=== PATIENT | female | born 1975 | race Caucasian/White ===

== ENCOUNTER → 2017-10-06 | Outpatient (CLI) | payer OTHER ==
[~2017-10-06] MED LIST: IBUP-1223 PO; None per pt; OXYC-302 PO
== END ==
LOC: STAR 09:03
PROVIDERS: ATTEND Otolaryngology
DX: Z02.9 Encounter for administrative examinations, unspecified (principal)

== ENCOUNTER 2017-10-10 05:33 | Observation (INO) | payer OTHER ==
[~2017-10-10] VITALS: Ht 160 cm; Wt 89.0 kg
[2017-10-10] MEDS ORDERED: LACTATED RINGERS 1,000 ML IV SCH (06:35)
[2017-10-10 06:42] VITALS: BP 108/72
[2017-10-10] MEDS ORDERED: LIDOCAINE-MPF 1%, 2ML INFIL ONE (07:00)
[2017-10-10] MEDS ORDERED: OXYMETAZOLINE NASAL SPRAY 0.05%, 15ML ONE (07:01)
[2017-10-10] MEDS ORDERED: FENTANYL PF 250 MCG/5ML ONE (07:18)
[2017-10-10] MEDS ORDERED: MIDAZOLAM 1 MG/ML, 2ML ONE (07:18)
[2017-10-10] MEDS ORDERED: ACETAMINOPHEN 325 MG TABLET PO PRN ×2 (07:30→10:00)
[2017-10-10] MEDS ORDERED: HYDROcodone/APAP 7.5-325MG/15ML UDC PO PRN (07:30)
[2017-10-10] MEDS ORDERED: MORPHINE SULFATE 4 MG/ML, 1ML IVPush PRN (07:30)
[2017-10-10] MEDS ORDERED: OXYcodone 5 MG/5 ML ORAL.SOL UDC PO PRN (07:30)
[2017-10-10] MEDS ORDERED: MEPERIDINE/PF 25MG/0.5ML IVPush PRN (07:30)
[2017-10-10] MEDS ORDERED: PROMETHAZINE 25 MG/ML, 1ML IV PRN (07:30)
[2017-10-10] MEDS ORDERED: FENTANYL PF 100 MCG/2ML IV PRN (07:30)
[2017-10-10] MEDS ORDERED: ONDANSETRON ODT 8 MG PO PRN (07:30)
[2017-10-10] MEDS ORDERED: OXYcodone 5 MG/5 ML ORAL.SOL UDC ONE (08:45)
[2017-10-10] MEDS ORDERED: FENTANYL PF 100 MCG/2ML ONE (08:45)
[2017-10-10] MEDS ORDERED: ACETAMINOPHEN 650 MG/20.3 ML UDC ONE (08:45)
[2017-10-10] MEDS ORDERED: MEPERIDINE/PF 25MG/0.5ML ONE (09:03)
[2017-10-10] MEDS ORDERED: ONDANSETRON ODT 4 MG PO PRN (10:00)
[2017-10-10] MEDS ORDERED: IBUPROFEN 200 MG TABLET PO PRN (10:00)
[2017-10-10] MEDS ORDERED: DEXAMETHASONE 4 MG/ML, 5ML ONE (11:10)
[2017-10-10] MEDS ORDERED: PROPOFOL 10 MG/ML, 20ML ONE (11:10)
[2017-10-10] MEDS ORDERED: ROCURONIUM 10 MG/ML,10ML ONE (11:10)
[2017-10-10] MEDS ORDERED: SUCCINYLCHOLINE 20 MG/ML, 10ML ONE (11:10)
[2017-10-10] MEDS: LACTATED RINGERS 1,000 ML IV SCH ×2 (13:16→20:00)
[2017-10-10] MEDS: APAP/CODEINE 300/30MG TABLET PO PRN (14:03)
[2017-10-10 14:30] VITALS: BP 114/71
[2017-10-10 19:03] VITALS: BP 119/71
[2017-10-11 01:12] VITALS: BP 100/60
[2017-10-11] MEDS: APAP/CODEINE 300/30MG TABLET PO PRN (05:52)
[2017-10-11] MEDS: LACTATED RINGERS 1,000 ML IV SCH (06:00)
[2017-10-11 07:30] VITALS: BP 113/63
== END 2017-10-11 09:32 | disposition home or self-care (01) ==
LOC: OUT 05:33 → 4NOR 09:33 → OUT 22:09
PROVIDERS: ADMIT Otolaryngology; ATTEND Otolaryngology
DX: J03.91 Acute recurrent tonsillitis, unspecified (principal); H81.11 Benign paroxysmal vertigo, right ear
CPT/HCPCS: 42821; 88304; G0378; J0330; J1100; J2175; J2250; J2704; J3010; J7120

== ENCOUNTER → 2018-10-16 | Outpatient (CLI) | payer OTHER ==
[~2018-10-16] MED LIST changes: +GADOBUTROL 10 MMOL/10 ML PFS ONE
== END | disposition home or self-care (01) ==
LOC: CFH 08:21
PROVIDERS: ATTEND Family Medicine
DX: R51 Headache (principal)
CPT/HCPCS: 70553; A9585